=== PATIENT | female | born 1955 | race Native Hawaiian/Other Pacific Islander ===

== ENCOUNTER 2017-11-07 22:09 | Inpatient (IN) | payer OTHER ==
[2017-11-07 22:12] VITALS: BMI 30.2
[2017-11-07] MEDS ORDERED: Sodium Chloride 0.9% 1,000 ML IV STA (22:21)
--- NOTE | 2017-11-07 22:27 | ED PDOC ---
Arrival/HPI - General Chief Complaint: Flu-like Symptoms Time Seen by Provider: 11/07/17 22:16 Historian: Patient - History of Present Illness Narrative History of Present Illness (Text): 11/07/17 22:24 A 62 year old female, whose past medical history includes hypertension and diabetes, presents to the emergency department with a complaint of epigastric abdominal pain, nausea, vomiting, fever and chills. The patient denies headache , dizziness, chest pain, shortness of breath, dyspnea on exertion, cough, diarrhea, back pain, neck pain, urinary/bowel changes, or any other complaint. PMD: Dr. Fisher Time/Duration: Other (Today) Symptom Onset: Sudden Symptom Course: Unchanged Activities at Onset: Rest Context: Home Past Medical History - Provider Review Nursing Documentation Reviewed: Yes - Infectious Disease Hx of Infectious Diseases: None - Cardiac Hx Hypertension: Yes - Endocrine/Metabolic Hx Diabetes Mellitus Type 2: Yes - Psychiatric Hx Substance Use: No - Surgical History Hx Section: Yes Hx Hysterectomy: Yes Other/Comment: Laminectomy - Anesthesia Hx Anesthesia: No Family/Social History - Physician Review Nursing Documentation Reviewed: Yes Family/Social History: No Known Family HX Smoking Status: Never Smoked Hx Alcohol Use: No Hx Substance Use: No Allergies/Home Meds Allergies/Adverse Reactions: Allergies No Known Allergies Allergy (Verified 11/07/17 22:12) Home Medications: Home Meds Medication Instructions Recorded Confirmed Aspirin [Ecotrin] 1 tab PO DAILY 11/07/17 11/07/17 Fenofibrate [Tricor] 1 tab PO DAILY 11/07/17 11/07/17 Losartan [Cozaar] 1 tab PO DAILY 11/07/17 11/07/17 Metformin ER [Glucophage XR] 1 tab PO BID 11/07/17 11/07/17 Metoprolol Succinate [Toprol XL] 1 tab PO DAILY 11/07/17 11/07/17 Simvastatin [Simvastatin] 1 tab PO DAILY 11/07/17 11/07/17 hydroCHLOROthiazide [Hydrodiuril] 1 tab PO DAILY 11/07/17 11/07/17 Review of Systems - Physician Review All systems were reviewed & negative as marked: Yes - Review of Systems Constitutional: Fevers Respiratory: absent: SOB, Cough Cardiovascular: absent: Chest Pain, GRIFFITHS Gastrointestinal: Abdominal Pain (Epigastric), Nausea, Vomiting. absent: Stool Changes, Diarrhea Genitourinary Female: absent: Urine Output Changes Musculoskeletal: absent: Back Pain, Neck Pain Neurological: absent: Headache, Dizziness Physical Exam Vital Signs Reviewed: Yes Vital Signs Temp Pulse Resp BP Pulse Ox 11/08/17 03:27 18 114/59 L 98 11/08/17 02:14 96 H 18 112/70 98 11/08/17 02:11 108/67 11/08/17 00:27 80 18 137/66 98 11/07/17 22:21 98.1 F 95 H 18 124/56 L 93 L Temperature: Afebrile Blood Pressure: Hypertensive Pulse: Tachycardic Respiratory Rate: Normal Appearance: Positive for: Well-Appearing, Non-Toxic, Comfortable Pain Distress: None Mental Status: Positive for: Alert and Oriented X 3 - Systems Exam Head: Present: Atraumatic, Normocephalic Pupils: Present: PERRL Extroacular Muscles: Present: EOMI Conjunctiva: Present: Normal Mouth: Present: Moist Mucous Membranes Neck: Present: Normal Range of Motion Respiratory/Chest: Present: Clear to Auscultation, Good Air Exchange. No: Respiratory Distress, Accessory Muscle Use Cardiovascular: Present: Regular Rate and Rhythm, Normal S1, S2. No: Murmurs Abdomen: Present: Tenderness (Epigastric tenderness) Back: Present: Normal Inspection Upper Extremity: Present: Normal Inspection. No: Cyanosis, Edema Lower Extremity: Present: Normal Inspection. No: Edema Neurological: Present: GCS=15, CN II-XII Intact, Speech Normal Skin: Present: Warm, Dry, Normal Color. No: Rashes Psychiatric: Present: Alert, Oriented x 3, Normal Insight, Normal Concentration Medical Decision Making ED Course and Treatment: 11/07/17 22:28 Impression: A 62 year old female presents to the emergency department with a complaint of nausea, vomiting, fevers, chills, and epigastric abdominal pain. Plan: -- EKG -- Chest X-ray -- Labs -- Zofran, Protonix, and IV Fluids -- Urinalysis -- Reassess and disposition Progress Notes: EKG: Ordered, reviewed, and independently interpreted the EKG. Rate : 97 BPM Rhythm : NSR Interpretation : Incomplete RBBB. Non specific ST-T wave changes. Comparison : No previous EKG for comparison. XR Chest, 1 View Dictated and Authenticated by: Gustavo Ames MD 11/07/2017 10:52 PM Eastern Time ([place] & [place]) IMPRESSION: Minimal bilateral basilar atelectasis versus small infiltrates. 11/07/17 23:19: Discussed case with Dr. Fisher. Will admit patient to his service. US Abdomen Complete Dictated and Authenticated by: Gustavo Ames MD 11/07/2017 11:50 PM Eastern Time ([place] & [place]) IMPRESSION: Gallbladder wall thickening and trace pericholecystic fluid. This is a nonspecific finding. Correlate clinically. There are no stones, and there is no sonographic Valero's sign. A nuclear medicine hepatobiliary study can be performed as followup. 11/08/17 02:06: Discussed case with Dr. Fisher. Requests Dr. Townsend on surgical consult. vice president business & corporate development paged. CT Abdomen and Pelvis Without Intravenous Contrast Dictated and Authenticated by: Gustavo Ames MD 11/08/2017 2:00 AM Eastern Time ([place] & [place] IMPRESSION: 1. No acute abnormality in the abdomen, or pelvis. 2. No bowel obstruction. 3. Remainder of findings as above. 11/08/17 02:13: Dr. Townsend was paged. vice president business & corporate development was made aware as well. - Lab Interpretations Lab Results: 11/07/17 22:40 11/07/17 22:40 Lab Results 11/07/17 22:45: Urine Color Yellow, Urine Appearance Sl cloudy, Urine pH 6.0, Ur Specific [place] 1.020, Urine Protein 100 H, Urine Glucose (UA) Negative, Urine Ketones Negative, Urine Blood Large H, Urine Nitrate Positive H, Urine Bilirubin Negative, Urine Urobilinogen 1.0 H, Ur Leukocyte Esterase Moderate H, Urine RBC 25 - 30, Urine WBC 20 - 25, Ur Epithelial Cells 1 - 3, Urine Bacteria Mod 11/07/17 22:40: pO2 68 H, VBG pH 7.50 H, VBG pCO2 32.0 L, VBG HCO3 25.0, VBG Total CO2 26.0, VBG O2 Sat (Calc) 96.9 H, VBG Base Excess 2.4 H, VBG Potassium 4.4, Sodium 135.0, Chloride 103.0, Glucose 159 H, Lactate 1.0, FiO2 21.0, Venous Blood Potassium 4.4 11/07/17 22:40: Influenza Typ A,B (EIA) Negative for flu a/b 11/07/17 22:40: Sodium 136, Chloride 102, Potassium 3.6, Carbon Dioxide 21, Anion Gap 16, BUN 46 H, Creatinine 2.4 H, Est GFR ( Amer) 25, Est GFR ( Non-Af Amer) 21, Random Glucose 154 H, Calcium 9.0, Total Bilirubin 0.8, AST 47 H, ALT 43, Alkaline Phosphatase 88, Lactate Dehydrogenase 584, Total Creatine Kinase 135, Troponin I < 0.01, NT-Pro-B Natriuret Pep 1040 H, Total Protein 7.4 , Albumin 3.5, Globulin 3.8, Albumin/Globulin Ratio 0.9 L, Lipase 59 11/07/17 22:40: PT 13.1 H, INR 1.20 H, APTT 27.6 11/07/17 22:40: WBC 13.2 H, RBC 3.90, Hgb 11.7 L, Hct 34.0 L, MCV 87.2, MCH 30.0 , MCHC 34.4, RDW 13.3, Plt Count 213, MPV 10.9, Gran % 88.1 H, Lymph % (Auto) 3.6 L, [place] % (Auto) 8.1 H, Eos % (Auto) 0.1 L, Baso % (Auto) 0.1, Gran # 11.59 H, Lymph # 0.5 L, [place] # 1.1 H, Eos # 0.0, Baso # 0.01, Neutrophils % (Manual) 21 L, Band Neutrophils % 35 H*, Lymphocytes % (Manual) 14 L, Monocytes % (Manual ) 8 H, Eosinophils % (Manual) 18 H, Basophils % (Manual) 2 H, Metamyelocytes % 2 , Platelet Evaluation Normal I have reviewed the lab results: Yes - RAD Interpretation Radiology Orders: 11/07/17 22:22 CXR [CHEST PORTABLE] [RAD] Stat 11/07/17 23:21 ABD & PELVIS PO CONTRAST ONLY [CT] Stat 11/07/17 23:25 ABDOMEN COMPLETE [US] Stat - EKG Interpretation Interpreted by ED Physician: Yes Type: 12 lead EKG - Medication Orders Current Medication Orders: Acetaminophen (Tylenol 325mg Tab) 650 mg PO Q6H PRN PRN Reason: Fever >100.4 F Last Admin: 11/08/17 16:12 Dose: 650 mg Re-Assess: MAR Pain/Vitals Document 11/08/17 17:12 CD (Rec: 11/08/17 17:29 CD [id number]) Sleep Is patient sleeping during reassessment? Yes Hydromorphone HCl (Dilaudid) 0.5 mg IVP Q4H PRN PRN Reason: Pain, severe (8-10) Metronidazole (Flagyl) 500 mg in 100 mls @ 100 mls/hr IVPB Q8 ANASTACIO PRN Reason: Protocol Last Admin: 11/08/17 14:28 Dose: 100 mls/hr eMAR Start Stop Document 11/08/17 14:28 CD (Rec: 11/08/17 14:28 CD [id number]) Intravenous Solution Start Date 11/08/17 Start Time 14:28 Ceftriaxone Sodium 1,000 mg/ (Sodium Chloride) 50 mls @ 100 mls/hr IVPB Q12H ANASTACIO PRN Reason: Protocol Last Admin: 11/08/17 16:53 Dose: 100 mls/hr eMAR Start Stop Document 11/08/17 16:53 CD (Rec: 11/08/17 16:53 CD [id number]) Intravenous Solution Start Date 11/08/17 Start Time 16:53 Sodium Chloride (Sodium Chloride 0.9%) 100 mls @ 100 mls/hr IV .Q1H ANASTACIO Last Admin: 11/08/17 18:15 Dose: Insulin Human Regular (Humulin R Low) 0 units SC ACHS ANASTACIO PRN Reason: Protocol Last Admin: 11/08/17 16:35 Dose: 1 units MAR Blood Glucose Document 11/08/17 16:35 CD (Rec: 11/08/17 16:36 [email or web address]) Blood Glucose Finger Stick Blood Glucose (70-120) 159 Subcutaneous Administrations Document 11/08/17 16:35 CD (Rec: 11/08/17 16:36 [email or web address]) Injection Site MAR Injection Site Umbilicus Charges for Administration # of Subcutaneous Administrations 1 Metoprolol Succinate (Toprol Xl) 50 mg PO BRK ANASTACIO Ondansetron HCl (Zofran Inj) 4 mg IVP Q6H PRN PRN Reason: Nausea/Vomiting Last Admin: 11/08/17 16:35 Dose: 4 mg IVP Administration Document 11/08/17 16:35 CD (Rec: 11/08/17 16:35 CD [id number]) Charges for Administration # of IVP Administrations 1 Pantoprazole Sodium (Protonix Inj) 40 mg IVP DAILY ANASTACIO Last Admin: 11/08/17 09:41 Dose: 40 mg IVP Administration Document 11/08/17 09:41 CD (Rec: 11/08/17 09:41 CD [id number]) Charges for Administration # of IVP Administrations 1 Discontinued Medications Acetaminophen (Tylenol 325mg Tab) 975 mg PO STAT STA Stop: 11/08/17 00:18 Last Admin: 11/08/17 00:26 Dose: 975 mg MAR Pain/Vitals Document 11/08/17 00:26 SS (Rec: 11/08/17 00:26 SS [id number]) Pain Reassessment Is This A Pain ReAssessment? No Sleep Is patient sleeping during reassessment? No Presence of Pain Presence of Pain Yes Location Pain Location Body Hub Cutter Diphenhydramine HCl (Benadryl) 25 mg IVP STAT STA Stop: 11/08/17 02:07 Last Admin: 11/08/17 02:20 Dose: 25 mg IVP Administration Document 11/08/17 02:20 LAC (Rec: 11/08/17 02:20 LAC [id number]) Charges for Administration # of IVP Administrations 1 Furosemide (Lasix) 40 mg IVP ONCE ONE Stop: 11/08/17 02:06 Last Admin: 11/08/17 02:11 Dose: 40 mg MAR Blood Pressure Document 11/08/17 02:11 LAC (Rec: 11/08/17 02:19 LAC [id number]) Blood Pressure Blood Pressure (100/60-150/90) 108/67 IVP Administration Document 11/08/17 02:11 LAC (Rec: 11/08/17 02:19 LAC [id number]) Charges for Administration # of IVP Administrations 1 Sodium Chloride (Sodium Chloride 0.9%) 1,000 mls @ 1,000 mls/hr IV .Q1H STA Stop: 11/07/17 23:20 Last Admin: 11/07/17 22:41 Dose: 1,000 mls/hr eMAR Start Stop Document 11/07/17 22:41 SS (Rec: 11/07/17 22:41 SS [id number]) Intravenous Solution Start Date 11/07/17 Start Time 22:41 End Date 11/07/17 End time 23:41 Total Infusion Time 60 Piperacillin Sod/Tazobactam Sod (Zosyn 3.375 In Ns 100ml) 100 mls @ 200 mls/hr IVPB STAT STA PRN Reason: Protocol Stop: 11/08/17 00:21 Last Admin: 11/08/17 00:18 Dose: 200 mls/hr eMAR Start Stop Document 11/08/17 00:18 SS (Rec: 11/08/17 00:18 SS [id number]) Intravenous Solution Start Date 11/08/17 Start Time 00:18 End Date 11/08/17 End time 00:48 Total Infusion Time 30 Ceftriaxone Sodium 1,000 mg/ (Sodium Chloride) 50 mls @ 100 mls/hr IVPB Q24H ANASTACIO PRN Reason: Protocol Sodium Chloride (Sodium Chloride 0.9%) 1,000 mls @ 150 mls/hr IV .Q6H40M ANASTACIO Last Admin: 11/08/17 06:34 Dose: 150 mls/hr eMAR Start Stop Document 11/08/17 06:34 PCU (Rec: 11/08/17 06:35 PCU [id number]) Intravenous Solution Start Date 11/08/17 Start Time 05:45 End Date 11/08/17 End time 11:45 Total Infusion Time 360 Metoclopramide HCl (Reglan) 10 mg IVP STAT STA Stop: 11/08/17 02:07 Last Admin: 11/08/17 02:20 Dose: 10 mg IVP Administration Document 11/08/17 02:20 LAC (Rec: 11/08/17 02:21 LAC [id number]) Charges for Administration # of IVP Administrations 1 Ondansetron HCl (Zofran Inj) 4 mg IVP STAT STA Stop: 11/07/17 22:22 Last Admin: 11/07/17 22:41 Dose: 4 mg IVP Administration Document 11/07/17 22:41 SS (Rec: 11/07/17 22:41 SS [id number]) Charges for Administration # of IVP Administrations 1 Ondansetron HCl (Zofran Inj) 4 mg IVP STAT STA Stop: 11/07/17 23:23 Last Admin: 11/07/17 23:28 Dose: 4 mg IVP Administration Document 11/07/17 23:28 SS (Rec: 11/07/17 23:28 SS [id number]) Charges for Administration # of IVP Administrations 1 Pantoprazole Sodium (Protonix Inj) 40 mg IVP STAT STA Stop: 11/07/17 22:22 Last Admin: 11/07/17 22:41 Dose: 40 mg IVP Administration Document 11/07/17 22:41 SS (Rec: 11/07/17 22:41 SS [id number]) Charges for Administration # of IVP Administrations 1 - Scribe Statement The provider has reviewed the documentation as recorded by the Jarredibe Jovana Casillas Provider Scribe Attestation: All medical record entries made by the Scribe were at my direction and personally dictated by me. I have reviewed the chart and agree that the record accurately reflects my personal performance of the history, physical exam, medical decision making, and the department course for this patient. I have also personally directed, reviewed, and agree with the discharge instructions and disposition. Disposition/Present on Arrival - Present on Arrival Any Indicators Present on Arrival: No History of DVT/PE: No History of Uncontrolled Diabetes: No Urinary Catheter: No History of Decub. Ulcer: No History Surgical Site Infection Following: None - Disposition Have Diagnosis and Disposition been Completed?: Yes Diagnosis: UTI (urinary tract infection), Bandemia, Cholecystitis, Renal failure Disposition: HOSPITALIZED Disposition Time: 03:00 Condition: FAIR
[2017-11-07 22:51] LABS: VENOUS BLOOD GAS BASE EXCESS 2.4 mmol/L (0.0-2.0); VENOUS BLOOD GAS PO2 68 mm/Hg (30-55)
--- NOTE | 2017-11-07 22:53 | RAD ---
EXAM: XR Chest, 1 View CLINICAL HISTORY: 62 years old, female; Signs and symptoms; Shortness of breath; Patient HX: Flu, abd pain TECHNIQUE: Frontal view of the chest. COMPARISON: No relevant prior studies available. FINDINGS: Lungs: Minimal hazy opacity right lung base, atelectasis versus small infiltrate. Atelectasis versus small infiltrate left base. Pleural space: Unremarkable. No pneumothorax. Heart: Heart size is normal. Degenerative changes thoracic spine. Mediastinum: Unremarkable. Bones/joints: See above. IMPRESSION: Minimal bilateral basilar atelectasis versus small infiltrates.
[2017-11-07 22:59] LABS: ALB/GLOB RATIO 0.9 (1.1-1.8); ALBUMIN 3.5 g/dL (3.0-4.8); GFR AFRICAN-AMERICAN 25; GFR NON-AFRICAN AMERICAN 21; LIPASE 59 U/L (23-300)
[2017-11-07 23:03] LABS: INR 1.2 (0.93-1.08); PARTIAL THROMBOPLASTIN TIME 27.6 Seconds (25.1-36.5); PROTHROMBIN TIME 13.1 SECONDS (9.4-12.5)
[2017-11-07 23:05] LABS: ALT/SGPT 43 U/L (7-56); AST/SGOT 47 U/L (14-36); BASO # 0.01 K/mm3 (0.0-2.0); BASO % 0.1 % (0.0-3.0); BLOOD UREA NITROGEN 46 mg/dL (7-21); EOS % 0.1 % (1.5-5.0); GRAN # 11.59 (1.4-6.5); GRAN % 88.1 % (50.0-68.0); HEMOGLOBIN 11.7 g/dL (12.0-16.0); LYMPH # 0.5 (1.2-3.4); LYMPH % 3.6 % (22.0-35.0); MEAN CELL VOLUME 87.2 fl (80.0-105.0); MEAN CORPUSCULAR HGB CONC 34.4 g/dl (31.0-37.0); MEAN PLATELET VOLUME 10.9 fl (7.0-11.0); MONO # 1.1 (0.1-0.6); MONO % 8.1 % (1.0-6.0); PLATELET COUNT 213 10^3/uL (120.0-450.0); RED CELL DISTRIBUTION WIDTH 13.3 % (11.5-14.5); WHITE BLOOD COUNT 13.2 10^3/ul (4.5-11.0)
[2017-11-07 23:11] LABS: B-TYPE NATRIURETIC PEPTIDE 1040 pg/mL (0-450); TROPONIN I < 0.01 ng/mL
[2017-11-07] MEDS ORDERED: Iohexol 240 (50 ml) ONE (23:29)
--- NOTE | 2017-11-07 23:51 | US ---
EXAM: US Abdomen Complete CLINICAL HISTORY: 62 years old, female; Pain; Abdominal pain; Generalized; Additional info: Upper abd pain TECHNIQUE: Real-time ultrasound of the abdomen (complete) with image documentation. COMPARISON: No relevant prior studies available. FINDINGS: Liver: Hepatomegaly. Diffusely increased echogenicity throughout the liver consistent with hepatic steatosis. Portal vein is patent with normal direction of flow. No intrahepatic bile duct dilation. Gallbladder: No gallstones. Diffuse nonspecific gallbladder wall thickening at 3.6 mm. No sonographic Valero's sign. Questionable minimal pericholecystic fluid. Common bile duct: Common bile duct measures 5.6 mm. No stones. No dilation. Pancreas: Unremarkable as visualized. Kidneys: Right kidney measures 12.9 CM longitudinally. 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 This measures 1.6 CM. Left kidney measures 11.3 CM longitudinally. No stones. No hydronephrosis. Spleen: Spleen measures 10.4 CM longitudinally. Aorta: IVC and aorta are unremarkable. No aneurysm. Inferior vena cava: See above. IMPRESSION: Gallbladder wall thickening and trace pericholecystic fluid. This is a nonspecific finding. Correlate clinically. There are no stones, and there is no sonographic Valero's sign. A nuclear medicine hepatobiliary study can be performed as followup.
[2017-11-07] MEDS ORDERED: Piperacillin/Tazobact 3.375 gm 100 ML IVPB STA (23:52)
[2017-11-08 00:53] LABS: URINE BILIRUBIN NEGATIVE (NEGATIVE); URINE BLOOD LARGE (NEGATIVE); URINE GLUCOSE (UA) NEGATIVE (NEGATIVE); URINE LEUKOCYTE ESTERASE MODERATE Leu/uL (NEGATIVE); URINE NITRATE POSITIVE (NEGATIVE); URINE PROTEIN 100 mg/dL (<30 mg/dL)
[2017-11-08 00:54] LABS: URINE APPEARANCE SL CLOUDY (CLEAR); URINE COLOR YELLOW (YELLOW)
[2017-11-08 01:27] LABS: URINE BACTERIA MOD (NEG); URINE RBC 25 - 30 /hpf (0-2); URINE WBC 20 - 25 /hpf (0-6)
--- NOTE | 2017-11-08 02:00 | CT ---
EXAM: CT Abdomen and Pelvis Without Intravenous Contrast CLINICAL HISTORY: 62 years old, female; Pain; Abdominal pain; Generalized; Prior surgery; Surgery type: C section; Additional info: Upper abd pain, vomiting TECHNIQUE: Axial computed tomography images of the abdomen and pelvis without intravenous contrast. All CT scans at this facility use one or more dose reduction techniques, viz.: automated exposure control; ma/kV adjustment per patient size (including targeted exams where dose is matched to indication; i.e. head); or iterative reconstruction technique. Coronal and sagittal reformatted images were created and reviewed. COMPARISON: US - ABDOMEN COMPLETE 2017-11-07 23:28 FINDINGS: Lower thorax: No acute findings. ABDOMEN: Liver: Hepatomegaly and hepatic steatosis. Gallbladder and bile ducts: No calcified gallstones. No significant pericholecystic inflammation. No ductal dilation. Pancreas: Unremarkable. No ductal dilation. Spleen: Spleen is unremarkable. Adrenals: Unremarkable. No mass. Kidneys and ureters: Kidneys are unremarkable. No renal calculi. No hydronephrosis. Stomach and bowel: Stomach is unremarkable. No small bowel obstruction. Appendix is unremarkable. Colon is unremarkable. Appendix: See above. PELVIS: Bladder: Urinary bladder is unremarkable. No stones. Reproductive: Hysterectomy. ABDOMEN and PELVIS: Intraperitoneal space: No free fluid in the pelvis. No free air. Bones/joints: Diffuse spinal degenerative changes. No acute fracture. No dislocation. Soft tissues: Unremarkable. Vasculature: Aorta is atherosclerotic. No abdominal aortic aneurysm. Lymph nodes: Unremarkable. No enlarged lymph nodes. IMPRESSION: 1. No acute abnormality in the abdomen, or pelvis. 2. No bowel obstruction. 3. Remainder of findings as above.
[2017-11-08] MEDS ORDERED: DiphenhydrAMINE 50 mg/ml Inj IVP STA (02:06)
[2017-11-08 03:14] LABS: NEUTROPHIL 21 % (50.0-70.0)
[2017-11-08 03:16] LABS: BAND 35 % (0-2); LYMPHOCYTE 14 % (22.0-35.0)
[2017-11-08 03:17] LABS: BASOPHIL 2 % (0.0-1.0); EOSINOPHIL 18 % (0.0-3.0); METAMYELOCYTE 2 %; MONOCYTE 8 % (1.0-6.0); PLATELET ESTIMATE NORMAL (NORMAL)
--- NOTE | 2017-11-08 04:09 | CP.PCM.CON ---
History of Present Illness - History of Present Illness History of Present Illness: General Surgery Consult Note for Dr. Townsend Reason for consult: Abdominal pain, nausea/vomiting 62 F with PMH that includes HTN, DM, HLD presents to [facility] with complaint of abdominal pain and nausea/vomiting. Patient states that her symptoms began on Thursday while she was at home. She reports a sudden onset and states that it has gotten progressively worse. Patient states that last night pain became most severe and decided to come to hospital. She reports 1-2 episodes of non-bloody, non-bilious vomiting per day. She reports associated fever/chills and anorexia. Patient has poor oral intake since onset of symptoms. She rates pain as severe. She describes pain and constant and sharp located in RUQ and epigastric region without radiation elsewhere. Eating/drinking exacerbates her symptoms while only the morphine in the ED was able to alleviate her symptoms. Patient denies chest pain, sob, palpitations, diarrhea, consitpation, incontinence, hematemesis , hematochezia, and urinary symptoms. PMD: Dr. Arizmendi PMH: HTN, DM, HLD Meds: As per EMR Allergy: NKDA PSH: Laminectomy, FH: non-contributory Social: Denies tobacco/EtOH/illicit drug use, lives with , works as teacher's aid Review of Systems - Review of Systems All systems: reviewed and no additional remarkable complaints except (12 point ROS negative unless otherwise stated as per HPI) Past Patient History - Infectious Disease Hx of Infectious Diseases: None - Past Social History Smoking Status: Never Smoked - CARDIAC Hx Hypertension: Yes - ENDOCRINE/METABOLIC Hx Diabetes Mellitus Type 2: Yes - PSYCHIATRIC Hx Substance Use: No - SURGICAL HISTORY Hx Section: Yes Hx Hysterectomy: Yes Other/Comment: Laminectomy - ANESTHESIA Hx Anesthesia: No Meds Allergies/Adverse Reactions: Allergies Allergy/AdvReac Type Severity Reaction Status Date / Time No Known Allergies Allergy Verified 11/07/17 22:12 Physical Exam - Constitutional Appears: Non-toxic, No Acute Distress - Head Exam Head Exam: ATRAUMATIC, NORMOCEPHALIC - Eye Exam Eye Exam: EOMI, Normal appearance. absent: Scleral icterus Pupil Exam: PERRL - ENT Exam ENT Exam: Mucous Membranes Moist - Respiratory Exam Respiratory Exam: NORMAL BREATHING PATTERN - Cardiovascular Exam Cardiovascular Exam: REGULAR RHYTHM - GI/Abdominal Exam GI & Abdominal Exam: Distended (mild), Normal Bowel Sounds, Soft, Tenderness ( epigastric/RUQ). absent: Firm, Guarding, Hernia, Rebound, Rigid Additional comments: (+) guzman's sign - Extremities Exam Extremities exam: Positive for: normal capillary refill, pedal pulses present. Negative for: calf tenderness - Back Exam Back exam: absent: CVA tenderness (L), CVA tenderness (R) - Neurological Exam Neurological exam: Alert, CN II-XII Intact, Oriented x3 - Psychiatric Exam Psychiatric exam: Normal Affect, Normal Mood - Skin Skin Exam: Dry, Intact, Normal Color, Warm Results - Vital Signs Recent Vital Signs: Last Vital Signs Temp 98.1 F 11/07/17 22:21 Pulse 96 H 11/08/17 02:14 Resp 18 11/08/17 03:27 BP 114/59 L 11/08/17 03:27 Pulse Ox 98 11/08/17 03:27 - Labs Result Diagrams: 11/08/17 08:30 11/08/17 08:30 Assessment & Plan - Assessment and Plan (Free Text) Plan: 62 F with abdominal pain and nausea/vomiting. ABUS findings suggestive of acute acalculous cholecystitis which differs from CT abd/pelvis -NPO -IV fluids -IV Antibiotics -Analgesics/Anti-emetics PRN -Anti-pyretics PRN -GI/DVT ppx -WIll discuss with Dr. Kristian Yen PGY1
[2017-11-08] MEDS ORDERED: HYDROmorphone 0.5 mg/0.5 ml ISec IVP PRN (05:29)
[2017-11-08] MEDS ORDERED: Sodium Chloride 0.9% 1,000 ML IV SCH (05:45)
[2017-11-08] MEDS ORDERED: cefTRIAXone 1,000 MG in Sodium Chloride 0.9% 50 ML IVPB SCH (05:45)
[2017-11-08] MEDS: metroNIDAZOLE IV 500 mg/100 ml 500 MG/100 ML BAG IVPB SCH ×3 (06:21→21:10)
[2017-11-08] MEDS: cefTRIAXone 1,000 MG in Sodium Chloride 0.9% 50 ML IVPB SCH ×2 (06:30→16:53)
--- NOTE | 2017-11-08 08:23 | CP.PCM.HP ---
History of Present Illness - History of Present Illness History of Present Illness: 62 year old female with history of diabetes, hyperlipidemia and hypertension presented to the Emergency Room last night with nausea, and abdominal pain. Patient says she started having chills and nausea about 5-6 days ago. The nausea was getting worse and she felt pain and pressure in the lower part of her abdomen so she came to the ER. She denies chest pain, shortness of breath, dysuria, diarrhea or swelling of lower extremities. Present on Admission - Present on Admission Any Indicators Present on Admission: No History of DVT/PE: No History of Uncontrolled Diabetes: No Urinary Catheter: No Decubitus Ulcer Present: No Review of Systems - Constitutional Constitutional: Chills - Cardiovascular Cardiovascular: absent: Chest Pain, Diaphoresis, Dyspnea - Gastrointestinal Gastrointestinal: As Per HPI - Genitourinary Genitourinary: As Per HPI - Musculoskeletal Musculoskeletal: absent: Abnormal Gait, Arthralgias, Back Pain Past Patient History - Infectious Disease Hx of Infectious Diseases: None - Past Social History Smoking Status: Never Smoked - CARDIAC Hx Hypertension: Yes - ENDOCRINE/METABOLIC Hx Diabetes Mellitus Type 2: Yes - MUSCULOSKELETAL/RHEUMATOLOGICAL Hx Falls: No - PSYCHIATRIC Hx Substance Use: No - SURGICAL HISTORY Hx Section: Yes Hx Hysterectomy: Yes Other/Comment: Laminectomy - ANESTHESIA Hx Anesthesia: No Meds Allergies/Adverse Reactions: Allergies Allergy/AdvReac Type Severity Reaction Status Date / Time No Known Allergies Allergy Verified 11/07/17 22:12 Physical Exam - Constitutional Appears: No Acute Distress - Head Exam Head Exam: ATRAUMATIC, NORMOCEPHALIC - Respiratory Exam Respiratory Exam: Clear to Auscultation Bilateral, NORMAL BREATHING PATTERN - Cardiovascular Exam Cardiovascular Exam: REGULAR RHYTHM, +S1, +S2 - GI/Abdominal Exam GI & Abdominal Exam: Soft, Tenderness. absent: Guarding Additional comments: diffuse abdominal tenderness, negative Valero's sign - Extremities Exam Extremities exam: Positive for: normal inspection - Neurological Exam Neurological exam: Alert, CN II-XII Intact, Oriented x3 Results - Vital Signs Recent Vital Signs: Last Vital Signs Temp 98.6 F 11/08/17 05:01 Pulse 87 11/08/17 05:01 Resp 20 11/08/17 05:01 BP 102/55 L 11/08/17 05:01 Pulse Ox 98 11/08/17 03:27 - Labs Result Diagrams: 11/08/17 08:30 11/08/17 08:30 Assessment & Plan - Assessment and Plan (Free Text) Assessment: Sepsis Urinary tract infection r/o cholecystitis GUANACO Anemia HTN DMII HLP arthritis Plan: Patient with diffuse tenderness and feeling of pressure in the lower quadrants. U/S abdomen shows gallbladder thickening and minimal pericholecystic fluid White count elevated with bands of 35. Consult Dr. Paul for infectious disease continue Zofran as needed for nausea. continue Protonix. Patient with new renal insufficiency. IV NS at 100ml/hour. awaiting today's labs. Accuchecks with sliding scale coverage for diabetes hold metformin secondary to acute kidney injury will start Metoprolol with holding parameters for hypertension
[2017-11-08 08:57] LABS: BASO # 0.01 K/mm3 (0.0-2.0); BASO % 0.1 % (0.0-3.0); EOS % 0.2 % (1.5-5.0); GRAN # 10.53 (1.4-6.5); GRAN % 86.6 % (50.0-68.0); HEMOGLOBIN 11.6 g/dL (12.0-16.0); LYMPH # 0.7 (1.2-3.4); LYMPH % 5.9 % (22.0-35.0); MEAN CORPUSCULAR HEMOGLOBIN 30.1 pg (25.0-35.0); MEAN CORPUSCULAR HGB CONC 34.6 g/dl (31.0-37.0); MEAN PLATELET VOLUME 10.6 fl (7.0-11.0); MONO # 0.9 (0.1-0.6); MONO % 7.2 % (1.0-6.0); RBC 3.85 10^6/uL (3.5-6.1); RED CELL DISTRIBUTION WIDTH 13.3 % (11.5-14.5); WHITE BLOOD COUNT 12.2 10^3/ul (4.5-11.0)
[2017-11-08] MEDS: Sodium Chloride 0.9% 100 ML IV SCH ×12 (09:04→20:34)
[2017-11-08 09:08] LABS: ALBUMIN 3.6 g/dL (3.0-4.8); CALCIUM 9.1 mg/dL (8.4-10.5)
--- NOTE | 2017-11-08 10:04 | CARD ---
APPROVED REPORT EKG Measurement Heart [id number] ID [id number] <Conclusion> Normal sinus rhythm Incomplete right bundle branch block NSSTW changes
[2017-11-08] MEDS: Insulin Reg-LOW-Coverage SC SCH ×3 (11:45→21:24)
--- NOTE | 2017-11-08 13:50 | NM ---
PROCEDURE: Nuclear Medicine Hepatobiliary Scan HISTORY: suspected cholecystitis COMPARISON: November 07, 2017. Abdominal ultrasound November 08, 2017. CT abdomen and pelvis TECHNIQUE: 5.2 mCi of technetium 99m Mebrofenin was administered intravenously. Planar images of the abdomen were obtained at 5 min intervals to 60 mins. Delayed images were also obtained. FINDINGS: LIVER: Timely and homogenous uptake. COMMON BILE DUCT: identified at 15 mins. GALLBLADDER: identified at 15 mins. SMALL BOWEL: Identified at 45 mins. IMPRESSION: Normal Hepatobiliary Scan. The cystic duct is patent.
--- NOTE | 2017-11-09 03:16 | CON ---
DATE: 11/08/2017 LOCATION : The patient is seen earlier in room number 372 bed 2. CHIEF COMPLAINT: Fevers and body aches times several days. HISTORY OF PRESENT ILLNESS: This is a 62-year-old female with past medical history of hypertension and diabetes who presented to the Emergency Room complaining of epigastric pain with fevers, chills and aches, associated with nausea.. No vomiting and there has been no diarrhea or constipation reported. There is minimal cough, but no shortness of breath and no chest pain. No dysuria or frequency. No rash. No new joint pain. PAST MEDICAL HISTORY: Significant for hypertension, high cholesterol, and diabetes mellitus. PAST SURGICAL HISTORY: Significant for and hysterectomy. ALLERGIES: THE PATIENT HAS NO KNOWN ALLERGIES. MEDICATIONS: At home include Ecotrin, valsartan, TriCor, , statin, metoprolol and metformin. PHYSICAL EXAMINATION: VITAL SIGNS: On exam, the patient is in bed with a temperature of 98, heart rate of 96, respiratory rate of 20, and blood pressure is 112/70. HEENT: Examination of HEENT is unremarkable. NECK: Supple. LUNGS: Have decreased breath sounds. HEART: Normal S1 and S2. ABDOMEN: Mild tenderness. No rebound, guarding or masses. LABORATORY DATA: Laboratory examination reveals a white count of 13,200, hemoglobin of 11, and platelets of 213. The patient does have 35% bandemia with 14% lymphocytosis 21% neutrophils and a coagulation is noted. The INR of 1.2. Blood gases are reviewed. Chemistries reveals a BUN of 46, creatinine of 2.3 and glucose of 154. AST is 47, and alkaline phosphatase is normal. BMP is 1040. The patient's lipase is 59. Urinalysis is noted with 20 to 25 wbc's and moderate bacteria. Influenza is negative. Microbiology is pending. DIAGNOSTIC DATA: The patient had a chest x-ray. Minimal hazy opacity of the right lung base. The patient has no known allergies. The patient also had a CT scan of the abdomen and pelvis with no acute findings. No findings in the lower thorax, no calcified gallstone, no pericholecystic inflammation and no ductal dilatation. consultation is reviewed, which states the patient suggestive of having acute acalculous cholecystitis and she will discuss here with Dr. Townsend. The patient also had an ultrasound of the abdomen, gallbladder thickening and has pericholecystic fluid. The patient also had a HIDA scan, with a normal HIDA scan and cystic duct is patent. Dr. Scales's note is reviewed. ASSESSMENT AND PLAN: This is a 62-year-old female with history of hypertension, diabetes and high cholesterol admitted now with history of fevers, tachycardia and leukocytosis and bandemia and positive urinalysis and abdominal pain and leukocytosis. Severe sepsis, with must rule out is acalculous cholecystitis versus urine as the source with 35% bandemia and acute kidney injury. We will treat the patient with ceftriaxone and Flagyl. Check on the blood cultures, urine cultures. Gastroenterology on consultation and Surgery on consultation. We will do an human immunodeficiency virus test because of the patient's age of 62. We will make further recommendations depending on blood cultures, urine cultures and the patient's response. Michelet Paul MD
[2017-11-09] MEDS: metroNIDAZOLE IV 500 mg/100 ml 500 MG/100 ML BAG IVPB SCH ×3 (05:37→21:27)
[2017-11-09] MEDS ORDERED: cefTRIAXone 1,000 MG in Sodium Chloride 0.9% 50 ML IVPB SCH (05:45)
[2017-11-09 06:55] LABS: BASO # 0.01 K/mm3 (0.0-2.0); BASO % 0.1 % (0.0-3.0); GRAN # 9.84 (1.4-6.5); GRAN % 82.8 % (50.0-68.0); HEMOGLOBIN 10.9 g/dL (12.0-16.0); LYMPH # 0.8 (1.2-3.4); LYMPH % 6.8 % (22.0-35.0); MEAN CELL VOLUME 86.5 fl (80.0-105.0); MEAN CORPUSCULAR HEMOGLOBIN 29.9 pg (25.0-35.0); MEAN CORPUSCULAR HGB CONC 34.6 g/dl (31.0-37.0); MEAN PLATELET VOLUME 10.3 fl (7.0-11.0); MONO # 1.2 (0.1-0.6); MONO % 10.3 % (1.0-6.0); RBC 3.64 10^6/uL (3.5-6.1); RED CELL DISTRIBUTION WIDTH 13.7 % (11.5-14.5); WHITE BLOOD COUNT 11.9 10^3/ul (4.5-11.0)
[2017-11-09] MEDS: Insulin Reg-LOW-Coverage SC SCH ×4 (07:45→22:18)
[2017-11-09 07:48] LABS: ALB/GLOB RATIO 0.9 (1.1-1.8); ALBUMIN 3.4 g/dL (3.0-4.8); CALCIUM 8.8 mg/dL (8.4-10.5)
[2017-11-09] MEDS ORDERED: Alum-Mag Hydrox-Simethicone Susp (30 mL) PO PRN ×2 (08:07→08:15)
--- NOTE | 2017-11-09 08:20 | CP.PCM.PN ---
Subjective - Date & Time of Evaluation Date of Evaluation: 11/09/17 Time of Evaluation: 07:45 - Subjective Subjective: Patient is seen this morning. She is still feeling very nauseus and complains of epigastric abdominal pain. She spiked fever of 102.4 yesterday afternoon. Objective - Vital Signs/Intake and Output Vital Signs (last 24 hours): Temp Pulse Resp BP Pulse Ox 98.0 F 63 20 130/73 96 11/09/17 06:00 11/09/17 06:00 11/09/17 06:00 11/09/17 06:00 11/09/17 06:00 Intake and Output: 11/09/17 11/09/17 06:59 18:59 Intake Total 2039 Balance 2039 - Medications Medications: Current Medications Acetaminophen (Tylenol 325mg Tab) 650 mg PO Q6H PRN PRN Reason: Fever >100.4 F Last Admin: 11/08/17 21:15 Dose: 650 mg Al Hydrox/Mg Hydrox/Simethicone (Maalox Plus 30 Ml) 30 ml PO Q6H PRN PRN Reason: Indigestion / Heartburn Hydromorphone HCl (Dilaudid) 0.5 mg IVP Q4H PRN PRN Reason: Pain, severe (8-10) Metronidazole (Flagyl) 500 mg in 100 mls @ 100 mls/hr IVPB Q8 ANASTACIO PRN Reason: Protocol Last Admin: 11/09/17 05:37 Dose: 100 mls/hr Sodium Chloride (Sodium Chloride 0.9%) 100 mls @ 100 mls/hr IV .Q1H [facility] Last Admin: 11/08/17 20:34 Dose: Not Given Ceftriaxone Sodium 1 gm/ (Sodium Chloride) 100 mls @ 100 mls/hr IVPB Q12H ANASTACIO PRN Reason: Protocol Last Admin: 11/09/17 04:56 Dose: 100 mls/hr Potassium Chloride (Potassium Chloride 10 Meq/100 Ml) 10 meq in 100 mls @ 50 mls/hr IVPB Q2H ANASTACIO Stop: 11/09/17 11:59 Insulin Human Regular (Humulin R Low) 0 units SC ACHS ANASTACIO PRN Reason: Protocol Last Admin: 11/09/17 07:45 Dose: Not Given Metoprolol Succinate (Toprol Xl) 50 mg PO BRK AANSTACIO Ondansetron HCl (Zofran Inj) 4 mg IVP Q6H PRN PRN Reason: Nausea/Vomiting Last Admin: 11/09/17 04:56 Dose: 4 mg Pantoprazole Sodium (Protonix Inj) 40 mg IVP DAILY [facility] Last Admin: 11/08/17 09:41 Dose: 40 mg Potassium Chloride (K-Dur 20 Meq Er Tab) 20 meq PO TID ANASTACIO - Labs Labs: 11/09/17 06:00 11/09/17 06:00 PT 13.1 SECONDS (9.4-12.5) H 11/07/17 22:40 INR 1.20 (0.93-1.08) H 11/07/17 22:40 APTT 27.6 Seconds (25.1-36.5) 11/07/17 22:40 - Constitutional Appears: No Acute Distress - Head Exam Head Exam: ATRAUMATIC, NORMOCEPHALIC - Respiratory Exam Respiratory Exam: Clear to Ausculation Bilateral, NORMAL BREATHING PATTERN - Cardiovascular Exam Cardiovascular Exam: +S1, +S2 - GI/Abdominal Exam GI & Abdominal Exam: Soft, Tenderness, Normal Bowel Sounds Additional comments: + epigastric tenderness - Extremities Exam Extremities Exam: Normal Inspection - Neurological Exam Neurological Exam: Alert, Awake, CN II-XII Intact, Oriented x3 Assessment and Plan - Assessment and Plan (Free Text) Assessment: Sepsis Urinary Tract infection R/O acalculous cholecystitis GUANACO Hypokalemia HTN DMII HLP Plan: Patient spiked fever of 102.4 yesterday. continue antibiotics as per infectious disease. Tylenol as needed for fever. awaiting results of urine culture. HIDA scan done yesterday was negative. will replace potassium start diabetic diet Patient complaining of nausea and epigastric pain. continue Protonix. Will add Mylanta every 6 hours. continue Zofran as needed. CT abd/pelvis and Ultrasound showed gallbladder wall thickening and minimal pericholecystic fluid, but no gallstones. BUN and creatinine trending down with IV fluids. continue IV hydration.
[2017-11-09] MEDS: Metoprolol Succinate 50 mg XL Tab PO SCH (08:21)
[2017-11-09] MEDS: Sodium Chloride 0.9% 100 ML IV SCH ×15 (08:24→23:15)
[2017-11-09] MEDS: Potassium Chloride 20 mEq ER Tab PO SCH ×3 (09:29→18:33)
--- NOTE | 2017-11-09 20:41 | PN ---
DATE: 11/09/2017 SUBJECTIVE: Patient in bed in no acute distress, nontoxic. PHYSICAL EXAMINATION: VITAL SIGNS: Temperature 98, blood pressure 130/70, respiratory rate of 18. HEENT: Unremarkable. NECK: Supple. LUNGS: Decreased breath sounds. HEART: Normal S1, S2. ABDOMEN: Soft, nontender. LABORATORY EXAMINATION: [place] [address], hemoglobin 10, platelets of 237, BUN of 31, creatinine of 1.7. Urinalysis is noted. Serology, influenza is negative. Microbiology reveals the blood cultures are negative. Urine culture is gram negative rods. Review of orders reveals the patient to be on Flagyl and ceftriaxone. note is reviewed. Patient had a normal cystic duct which is patent. ASSESSMENT AND PLAN: This is a 62-year-old female with a history of hypertension, diabetes, high cholesterol, was admitted with history of fever, tachycardia, leukocytosis, bandemia, positive urinalysis, abdominal pain with severe sepsis, 35% bandemia and acute kidney injury, currently on ceftriaxone and Flagyl with gram negative altagracia in the urine as a source of the severe sepsis and negative HIDA scan and we will check on the identification of gram negative altagracia. Patient's temperature appears to have improved, so is the white count. We will follow with you. Michelet Paul MD
[2017-11-10] MEDS: Sodium Chloride 0.9% 100 ML IV SCH ×8 (00:41→18:07)
[2017-11-10] MEDS: metroNIDAZOLE IV 500 mg/100 ml 500 MG/100 ML BAG IVPB SCH ×2 (06:30→13:31)
[2017-11-10 07:16] LABS: BASO # 0.02 K/mm3 (0.0-2.0); BASO % 0.2 % (0.0-3.0); EOS # 0.1 (0.0-0.7); EOS % 0.6 % (1.5-5.0); GRAN # 9.4 (1.4-6.5); GRAN % 72.5 % (50.0-68.0); HEMOGLOBIN 10.2 g/dL (12.0-16.0); LYMPH # 1.7 (1.2-3.4); LYMPH % 12.7 % (22.0-35.0); MEAN CELL VOLUME 86.5 fl (80.0-105.0); MEAN CORPUSCULAR HEMOGLOBIN 29.2 pg (25.0-35.0); MEAN CORPUSCULAR HGB CONC 33.8 g/dl (31.0-37.0); MEAN PLATELET VOLUME 10.1 fl (7.0-11.0); MONO # 1.8 (0.1-0.6); RBC 3.49 10^6/uL (3.5-6.1); RED CELL DISTRIBUTION WIDTH 14.1 % (11.5-14.5)
[2017-11-10 07:37] LABS: ALB/GLOB RATIO 0.9 (1.1-1.8); ALBUMIN 3.3 g/dL (3.0-4.8); CALCIUM 8.7 mg/dL (8.4-10.5)
[2017-11-10] MEDS: Insulin Reg-LOW-Coverage SC SCH ×4 (08:40→22:13)
[2017-11-10] MEDS: Metoprolol Succinate 50 mg XL Tab PO SCH (08:47)
--- NOTE | 2017-11-10 09:16 | PN ---
DATE: SUBJECTIVE: The patient is in [facility] in [place] in room 372, bed 2. The patient was admitted with sepsis, urinary tract infection, abdominal pain and nausea associated with general symptoms of gastric dyspepsia. The patient has past history of diabetes mellitus, hypertension. The patient also has history of GI symptoms. The patient has been on medications for her diagnosis. At the time of admission, the patient was febrile and she was very asymptomatic. Today, the patient is starting to show improvement, she is being covered by antibiotics. The patient also has past history of hysterectomy. She denies any other surgeries. PHYSICAL EXAMINATION: VITAL SIGNS: The patient's pulse is 78, blood pressure is 127/78, respirations are 20, O2 saturation is 98% on room air and the patient has 97.9 body temperature. HEENT: Normocephalic. NECK: Thyroid is not enlarged. No lymphadenopathy in the neck. Carotid pulses are present. LUNGS: Trachea is central. Breath sounds are vesicular. Breath sounds are equally heard on both sides. HEART: Normal sinus rhythm. S1 and S2 present. No murmurs. ABDOMEN: Soft, some tenderness and distention is noted involving the epigastric area and left upper quadrant. ROOM WORKER: The patient is conscious, rational and oriented. Cranial nerves II through XII are intact . The patient's motor and sensory functions are within normal limits, cerebral functions within normal limits. DIAGNOSES: Urinary tract infection associated with sepsis. The patient also has abdominal symptoms or gastrointestinal manifestation. The patient needs Gastroenterology evaluation by toy assembler. The patient is also getting treatment by Infectious Disease, Dr. Paul, for sepsis. MEDICATIONS: List of medications consist of Rocephin 1 g q. 24 hours. The patient is on Flagyl 500 mg q. 8 hours, insulin coverage. The patient is on pantoprazole 40 mg daily. The patient has been taking metoprolol 50 mg daily, Zofran for nausea. PLAN: To do GI evaluation and follow up with antibiotic treatment. Her CAT scan was done involving the abdomen. Chest x-ray is non-diagnostic apparently. The patient's scan was negative. Overall, the patient has started to improve. We will follow up with the current management. The patient needs acute inpatient care. Yanni Ruby MD [facility] # [id number]
--- NOTE | 2017-11-10 09:25 | PN ---
DATE: SUBJECTIVE: The patient is in [facility] in [place], room 372, bed 2. The patient was admitted with sepsis, urinary tract infection. The patient was symptomatic with severe nausea, aches and pains of the body, temperature elevation. The patient has past history of diabetes mellitus, hypertension and gastritis. The patient also has past history of hysterectomy. The patient is seen this morning. She appears somewhat improved. PHYSICAL EXAMINATION: VITAL SIGNS: Pulse is 78, blood pressure 127/78, respirations are 20, temperature is 97.9, O2 sat is 98% on room air. HEENT: The patient's head is normocephalic. NECK: Thyroid is not enlarged. JVP is flat. Carotid pulses are present. No lymphadenopathy. LUNGS: Trachea is central. Breath sounds are vesicular. No adventitious sounds are heard. HEART: Normal sinus rhythm. S1 and S2 present. No murmurs. ABDOMEN: Soft, distention is noted. Tenderness is present in the epigastric area and left upper quadrant. ORTHOPAEDIC PHYSICIAN ASSISTANT: She is conscious, rational, oriented. Cranial nerves are intact. Motor, sensory functions and cerebral functions are within normal limits. She has been treated at this time for urinary tract infection and symptomatic gastric symptoms. MEDICATIONS: Consist of Mylanta. The patient is on Protonix, pantoprazole 40 mg IV daily. The patient is on metoprolol 50 mg daily. The patient is on insulin coverage for diabetes instead. The patient gets Zofran for nausea. Diet is 2 g sodium heart-healthy diet, diabetic. The patient's blood work shows that the white count seen today is 13,000, the hemoglobin is 10.2. The patient's differential shows that granulocyte count is 72.5%. The toxic granulocytes have disappeared. The patient needs gastroenterological evaluation and consultation being placed with Dr. Yañez. The patient is also seen by Dr. Paul, he is Infectious Disease decorator consultant. The patient's current management continues with antibiotic treatment. The patient is on Rocephin and Flagyl for the infection in the abdomen and urinary tract. CAT scan of the abdomen did not reveal any significant pathology. The gallbladder appears to be within normal limits. The kidney is of normal size. Chest x-ray is clear. EKG does not show any significant abnormality. The patient's overall prognosis is good at this time. Condition is improved. Yanni Ruby MD [facility] # [id number]
[2017-11-10] MEDS: Potassium Chloride 20 mEq ER Tab PO SCH ×3 (09:26→18:03)
[2017-11-10] MEDS: Sucralfate 1 gm/10 ml Oral Susp UD PO SCH (16:35)
--- NOTE | 2017-11-10 19:31 | PN ---
DATE: 11/10/2017 SUBJECTIVE: The patient is in bed, in no acute distress, and nontoxic who was seen early this morning, had low-grade fevers early this morning. PHYSICAL EXAMINATION: VITAL SIGNS: Temperature 101.3, blood pressure 120/60, and respiratory rate of 18. HEENT: Unremarkable. NECK: Supple. LUNGS: Has decreased breath sounds. HEART: Normal S1 and S2. ABDOMEN: Soft and nontender. LABORATORY DATA: Reveals the patient's white count of 13,000, hemoglobin of 10, and platelets of 274. Chemistry reveals a BUN of 23 and creatinine of 1.4. Urinalysis is noted. Influenza is negative. Microbiology reveals E. coli in the urine culture, which is sensitive to ceftriaxone, resistant to ampicillin, and sensitive to quinolone. LFTs are noted. Blood cultures are negative. MEDICATIONS: Review of medications reveal the patient to be on ceftriaxone and Flagyl. ASSESSMENT AND PLAN: A 62-year-old female with history of hypertension, diabetes, high cholesterol, history of fever, tachycardia, leukocytosis, bandemia, Escherichia coli, severe sepsis with 35% bandemia, acute kidney injury, on ceftriaxone and Flagyl, Escherichia coli in the urine as a source and with the slow response, note is reviewed from today with negative CAT scan of the abdomen and pelvis and negative HIDA scan. We will discontinue the Flagyl. We will add Cipro lower dose. The patient is scheduled for MRCP. We will follow with you. Michelet Paul MD
--- NOTE | 2017-11-11 02:04 | CON ---
DATE: 11/10/2017 This patient was seen and evaluated earlier today. HISTORY OF PRESENT ILLNESS: This is a 62-year-old patient with history of diabetes mellitus, dyslipidemia, hypertension, presented to the hospital with complaints of fever, chills, and nausea for about 5 to 6 days. The patient was also complaining of some abdominal pain. The patient has episodes of significant reflux symptoms and epigastric discomfort. GI consulted. The patient had ultrasound scan of the abdomen done which showed some thickening of the gallbladder wall with some questionable wall thickening up to 3.6 millimeter, questionable pericholecystic fluid. No gallstones noticed. Common bile duct is normal measuring about 5.6 millimeter. HIDA scan, however, done later on showed a nonvisualized gallbladder showing no obstruction. OTHER PAST MEDICAL HISTORY as above SOCIAL HISTORY no smoking no EtOH FAMILY HISTORY noncontributory REVIEW OF SYSTEM positive as above other systems reviewed negative PHYSICL EXAMINATION VITAL SIGNS stable afebile HEENT anicteric, atraumatic NECK supple no mass LUNGS bilateral air entry present ABDOMEN soft no masses no tenderness EXTREMITIES no cyanosis no clubbing NEUROLOGICALLY alert oriented most all extremities LABORATORY DATA: Hemoglobin 10.2, hematocrit 30.2, WBC 13, platelets 274, AST 72, ALT 57. BUN 23, creatinine 1.4. IMPRESSION: This is a 62-year-old patient with diabetes mellitus, hypertension, dyslipidemia, admitted with fever, chills, and nausea. The patient was found to have urinary tract infection. Urine shows Escherichia coli. RECOMMENDATION: We would recommend, 1. To continue the antibiotics as per Infectious Disease. 2. The patient also has significant reflux symptoms and epigastric symptoms, this could be partially related to the diabetes and gastroparesis. We would recommend to continue the PPI. The patient would benefit from the elective EGD and colonoscopy later as an outpatient. Empirically, we will continue the PPI low dose. Thank you very much for allowing us to participate in the care of the patient. Nii Gautam MD [facility]
[2017-11-11] MEDS: Sodium Chloride 0.9% 1,000 ML IV SCH ×2 (03:15→18:47)
[2017-11-11] MEDS: Sucralfate 1 gm/10 ml Oral Susp UD PO SCH ×2 (05:13→16:14)
[2017-11-11] MEDS: Insulin Reg-LOW-Coverage SC SCH ×4 (08:40→21:59)
[2017-11-11] MEDS: Pantoprazole 40 mg EC Tab PO SCH (08:41)
[2017-11-11] MEDS: Metoprolol Succinate 50 mg XL Tab PO SCH (08:41)
--- NOTE | 2017-11-11 09:25 | PN ---
DATE: LOCATION: The patient is in [facility] in [place], room 372, bed 2. SUBJECTIVE: The patient was admitted with fever, abdominal pain, chills, and back pain. The patient had urinary tract infection with questionable infection of the gallbladder. The patient was seen this morning. She is being treated for sepsis. PHYSICAL EXAMINATION: VITAL SIGNS: Pulse 74, blood pressure 136/82, respirations 18, O2 saturation 97% on room air, and temperature 98.6. LUNGS: Clear. HEART: Normal sinus rhythm. ABDOMEN: Soft. No tenderness noted at this time, except for mild tenderness in the epigastric area. COLLECTIONS DIRECTOR: Within normal limits. LABORATORY DATA: The urine cultures shows Gram-negative bacteria, probably Escherichia coli. The patient is awaiting an MRI done of the abdomen today. MEDICATIONS: The patient is on Rocephin and Cipro. ASSESSMENT AND PLAN: We will continue current management. The medications consists of Carafate 1 g b.i.d. The patient is on ciprofloxacin, ceftriaxone, Dilaudid for pain modalities, pantoprazole 40 mg IV for gastritis and . The patient's overall condition is improving. We will evaluate the current test reports and make plan for discharge possibly tomorrow morning. Yanni Ruby MD
[2017-11-11] MEDS: Potassium Chloride 20 mEq ER Tab PO SCH ×3 (11:41→17:18)
--- NOTE | 2017-11-11 12:38 | MRI ---
PROCEDURE: Magnetic Resonance Cholangiopancreatography HISTORY: Follow-up abnormal gallbladder ultrasound COMPARISON: None available. TECHNIQUE: Multiplanar, multisequence MR images of the abdomen were obtained, including heavily T2 weighted MRCP images of the biliary system. Rotating maximum intensity projection images of the biliary system were generated. FINDINGS: MRCP: The common bile duct is of a normal caliber. No evidence of choledocholithiasis. No intrahepatic biliary ductal dilatation. LIVER: Unremarkable. GALLBLADDER: No stones. No wall thickening or fluid SPLEEN: Unremarkable. PANCREAS: Unremarkable. ADRENALS: Unremarkable. KIDNEYS: Unremarkable. AORTA: No aneurysm. ASCITES: None. OTHER FINDINGS: None. IMPRESSION: Negative study
--- NOTE | 2017-11-11 21:59 | PN ---
DATE: 11/11/2017 SUBJECTIVE: This patient was seen and evaluated earlier. The patient is feeling much better now. Her reflux symptoms and burning sensation has significantly improved. PHYSICAL EXAMINATION VITAL SIGNS: Temperature is 98, pulse 74, blood pressure is 136/78. HEENT: Atraumatic. Anicteric. NECK: Supple. HEART: S1 and S2 heard. LUNGS: Bilateral air entry present. ABDOMEN: Soft. No tenderness now. EXTREMITIES: No edema, no cyanosis. NEUROLOGICAL: Alert and oriented. Moves all the extremities. LABORATORY DATA: No labs today. IMPRESSION: This is a 62-year-old patient with past medical history of diabetes mellitus, hypertension, dyslipidemia, admitted with urosepsis on antibiotics. The patient does have some significant reflux symptoms and epigastric discomfort, this could be probably related to the gastroparesis from diabetes. The patient has some questionable thickening of the gallbladder wall. The MRI scan done recently was reviewed, this was normal. MRCP was normal. The patient also has mild anemia. The patient would benefit from elective EGD and colonoscopy. The patient never had a colonoscopy done. The patient has chronic reflux symptoms. It is reasonable to do the EGD to rule out any Lowe's esophagus, erosive esophagitis, and I will also tailor the long-term treatment for the reflux disease. Would be very cautious in using PPI in view of this chronic kidney disease. In view of the significant symptoms, we will continue for a short period of course of PPI then we will switch it over to H2 blockers. Thank you very much for allowing me to participate in the care of the patient. Nii Gautam MD [facility]
--- NOTE | 2017-11-11 23:58 | PN ---
DATE: 11/11/2017 SUBJECTIVE: The patient seen early this morning in room 372. The patient is doing well. She states she is much better. No fevers or chills. PHYSICAL EXAMINATION VITAL SIGNS: Temperature is 98, T-max yesterday was 100.2, respiratory rate of 18 and heart rate of 73. HEENT: Unremarkable. NECK: Supple. LUNGS: Have decreased breath sounds. HEART: Normal S1, S2. ABDOMEN: Soft. LABORATORY EXAMINATION: Reveals a white count of 13,000. Initially, the patient had a 35% bandemia which was present on admission. BUN of 23 and creatinine of 1.4. Urinalysis is noted. Serology; HIV is negative. Influenza is negative. Microbiology reveals the blood cultures are no growth. Urine culture is E coli that is sensitive to ceftriaxone and sensitive to Cipro. The patient was scheduled for MRCP today which is reported to have a common bile duct is of normal caliber, no evidence of cholelithiasis, no intrahepatic biliary ductal dilatation and negative study. ASSESSMENT AND PLAN: This is a 62-year-old female with a history of hypertension, diabetes, high cholesterol, history of fever, tachycardia, leukocytosis, anemia, Escherichia coli with severe sepsis with 35% bandemia, acute kidney injury on ceftriaxone and Cipro at this time with a negative MRCP. Upon discharge, the patient may be discharged on p.o. Cipro alone would complete at least [address] Fisher's note is reviewed. Robotic Machine Operator note is reviewed. Michelet Paul MD
[2017-11-12 02:30] VITALS: O2SAT 96
[2017-11-12] MEDS: Sodium Chloride 0.9% 1,000 ML IV SCH (03:21)
[2017-11-12] MEDS: Sucralfate 1 gm/10 ml Oral Susp UD PO SCH (05:32)
[2017-11-12 06:28] VITALS: RESP 18
[2017-11-12] MEDS: Metoprolol Succinate 50 mg XL Tab PO SCH (07:53)
[2017-11-12] MEDS: Pantoprazole 40 mg EC Tab PO SCH (07:53)
[2017-11-12] MEDS: Insulin Reg-LOW-Coverage SC SCH (08:07)
--- NOTE | 2017-11-12 08:37 | CP.PCM.PN ---
Subjective - Date & Time of Evaluation Date of Evaluation: 11/12/17 Time of Evaluation: 07:45 - Subjective Subjective: Patient is seen this morning. She is feeling much better. She denies nausea or abdominal pain. Objective - Vital Signs/Intake and Output Vital Signs (last 24 hours): Temp Pulse Resp BP Pulse Ox 98.0 F 63 18 162/91 H 96 11/12/17 06:00 11/12/17 08:14 11/12/17 06:00 11/12/17 07:53 11/12/17 06:00 Intake and Output: 11/12/17 11/12/17 06:59 18:59 Intake Total 2500 Balance 2500 - Medications Medications: Current Medications Acetaminophen (Tylenol 325mg Tab) 650 mg PO Q6H PRN PRN Reason: Fever >100.4 F Last Admin: 11/10/17 19:52 Dose: 650 mg Al Hydrox/Mg Hydrox/Simethicone (Maalox Plus 30 Ml) 30 ml PO Q6H PRN PRN Reason: Indigestion / Heartburn Last Admin: 11/09/17 15:03 Dose: 30 ml Ciprofloxacin (Cipro) 250 mg PO Q12 [facility] PRN Reason: Protocol Stop: 11/19/17 14:58 Last Admin: 11/11/17 22:00 Dose: 250 mg Ceftriaxone Sodium 1 gm/ (Sodium Chloride) 100 mls @ 100 mls/hr IVPB Q12H [facility] PRN Reason: Protocol Last Admin: 11/12/17 05:32 Dose: 100 mls/hr Sodium Chloride (Sodium Chloride 0.9%) 1,000 mls @ 100 mls/hr IV .Q10H [facility] Last Admin: 11/12/17 03:21 Dose: 100 mls/hr Insulin Human Regular (Humulin R Low) 0 units SC ACHS [facility] PRN Reason: Protocol Last Admin: 11/12/17 08:07 Dose: Not Given Metoprolol Succinate (Toprol Xl) 50 mg PO BRK [facility] Last Admin: 11/12/17 07:53 Dose: 50 mg Ondansetron HCl (Zofran Inj) 4 mg IVP Q6H PRN PRN Reason: Nausea/Vomiting Last Admin: 11/10/17 00:53 Dose: 4 mg Pantoprazole Sodium (Protonix Ec Tab) 40 mg PO ACB [facility] Last Admin: 11/12/17 07:53 Dose: 40 mg Potassium Chloride (K-Dur 20 Meq Er Tab) 20 meq PO TID [facility] Last Admin: 11/11/17 17:18 Dose: 20 meq Sucralfate (Carafate Oral Susp) 1 gm PO 0600,1600 [facility] Last Admin: 11/12/17 05:32 Dose: 1 gm - Labs Labs: 11/10/17 06:45 11/10/17 06:45 PT 13.1 SECONDS (9.4-12.5) H 11/07/17 22:40 INR 1.20 (0.93-1.08) H 11/07/17 22:40 APTT 27.6 Seconds (25.1-36.5) 11/07/17 22:40 - Constitutional Appears: No Acute Distress - Head Exam Head Exam: ATRAUMATIC, NORMOCEPHALIC - Respiratory Exam Respiratory Exam: Clear to Ausculation Bilateral, NORMAL BREATHING PATTERN - Cardiovascular Exam Cardiovascular Exam: REGULAR RHYTHM, +S1, +S2 - GI/Abdominal Exam GI & Abdominal Exam: Soft, Normal Bowel Sounds. absent: Tenderness - Extremities Exam Extremities Exam: Normal Inspection - Neurological Exam Neurological Exam: Alert, Awake, CN II-XII Intact, Oriented x3 Assessment and Plan - Assessment and Plan (Free Text) Assessment: Sepsis secondary to E. coli urinary tract infection GERD HTN DMII Anemia Plan: Patient is feeling better. She has been switched to oral ciprofloxacin for urinary tract infection as per Dr. Paul, infectious disease. HIDA scan and MRCP were negative. BUN and creatinine are trending down. Patient will be discharged today. She will continue all of her home medications plus she will take Cipro 250 mg BID for 10 days, Protonix 20mg daily and Carafate 1 g BID. She will followup in the office in 1 week. She will followup with Dr. Gautam as an outpatient for EGD/colonoscopy.
[2017-11-12 08:55] LABS: BLOOD UREA NITROGEN 16 mg/dL (7-21); CALCIUM 9.1 mg/dL (8.4-10.5); GFR AFRICAN-AMERICAN > 60; GFR NON-AFRICAN AMERICAN 50
[2017-11-12] MEDS: Potassium Chloride 20 mEq ER Tab PO SCH (09:27)
[2017-11-12 13:02] VITALS: BP 162/87; PULSE 56; TEMP 98
--- NOTE | 2017-11-12 19:28 | PN ---
DATE: 11/12/2017 SUBJECTIVE: The patient seen earlier this morning in room 372, bed 2. The patient is doing well. No fevers or chills. No nausea or vomiting. PHYSICAL EXAMINATION: VITAL SIGNS: Temperature is 98, blood pressure is 112/60, respiratory rate of 18, heart rate of 69. HEENT: Unremarkable. NECK: Supple. LUNGS: Decreased breath sounds. HEART: Normal S1 and S2. ABDOMEN: Soft, nontender. LABORATORY EXAMINATION: Reveals a white count of 13,000 and BUN of 16, creatinine of 1.1 and the patient's MRCP is noted to be negative and Dr. note is reviewed. ASSESSMENT AND PLAN: A 62-year-old female with history of hypertension, diabetes, high cholesterol, history of fever, tachycardia, leukocytosis, anemia, Escherichia coli with severe sepsis with 35% bandemia, acute kidney injury on ceftriaxone and switch to p.o. Cipro and follow up with Gastroenterology and Urology. Michelet Paul MD
--- NOTE | 2017-11-12 23:10 | PN ---
DATE:11/12/2017 SUBJECTIVE: This patient was seen and evaluated earlier today. The patient was doing much better. No complaints of any abdominal pain. PHYSICAL EXAMINATION VITAL SIGNS: Afebrile. Pulse 56, blood pressure 162/87, respirations 18. HEENT: Atraumatic. Anicteric. NECK: Supple. HEART: S1 and S2 heard. LUNGS: Bilateral air entry present. ABDOMEN: Soft. No tenderness. EXTREMITIES: No cyanosis. No clubbing. LABORATORY DATA: No recent labs today. IMPRESSION: This is a 62-year-old patient with history of diabetes mellitus, dyslipidemia, hypertension, admitted with urosepsis. The patient is on antibiotics, clinically improving. Questionable thickening of the gallbladder wall was noticed in the sonogram, but the magnetic resonance cholangiopancreatography was negative. The patient has a history of recurrent severe reflux symptoms, this could be secondary to the gastroparesis, but clinically much better now. The patient is on proton pump inhibitors and also on Carafate, we will continue that. PLAN: The plan is eventually to discontinue the proton pump inhibitors and place her only on H2 blockers. She would definitely benefit from upper gastrointestinal endoscopy to further evaluate this, rule out Lowe's ulcer. The patient never had a colonoscopy. She would also benefit from the colonoscopy at the same time. I had a detailed discussion with the patient who fully understood and the contact details were given to the patient to call our office and schedule for the both upper endoscopy and a colonoscopic evaluation. Thank you very much for allowing us to participate in the care of the patient. Nii Gautam MD [facility]
--- NOTE | 2017-11-16 08:10 | DS ---
BRIEF HISTORY: This is a 62-year-old [place] female with history of diabetes, hyperlipidemia, and hypertension who presented to the emergency room with nausea, chills and abdominal pain for 5 to 6 days. The nausea was getting worse, and she began to feel pain and pressure in the lower part of her abdomen so she came to the emergency room. She denied chest pain, shortness of breath, dysuria, diarrhea, or swelling of her lower extremities. White count was 12.2, potassium 3.5, BUN 42, creatinine 2.3, which was acute as the patient had normal renal function previously. Ultrasound done in the emergency room showed gallbladder thickening and minimal pericholecystic fluid. On bloodwork, bands were also elevated at 35. HOSPITAL COURSE: The patient was admitted to the acute medical floor. She was started on IV antibiotics and seen by Infectious Disease tax credit leasing consultant, Dr. Paul. Pancultures were sent. Urine culture grew E. coli. Blood cultures were negative. She was given IV Protonix and Zofran as needed for nausea. For the acute renal insufficiency, she was started on IV normal saline [address] of the abdomen and pelvis was done which showed no gallstones, no significant pericholecystic inflammation or ductal dilation. The patient, however, was still complaining of nausea and reflux. HIDA scan was done which was negative. The patient was seen by GI tax credit leasing consultant, Dr. Gautam. MRCP was also done which was found to be normal. The patient was started on Carafate, which helped to improve her reflux symptoms. The nausea subsided. The patient's temperature also normalized from a T-max of 101.3 and the BUN and creatinine also normalized with IV fluids. She was switched to oral antibiotics and discharged home in improved condition. DISCHARGE DIAGNOSES: Sepsis, urinary tract infection, gastroesophageal reflux disease, hypertension, diabetes, hyperlipidemia, anemia and arthritis. DISCHARGE MEDICATIONS: Cipro 250 mg twice a day for 10 days, Protonix 20 mg daily, Carafate 1 g twice a day, Cozaar 50 mg daily, Aspirin 81 mg daily, metformin 500 mg twice a day, hydrochlorothiazide 25 mg daily, Zocor 10 mg daily, metoprolol 50 mg daily, and TriCor 145 mg daily. FOLLOW-UP: The patient will follow up in the office in 1 week. She will also follow up with Dr. Gautam for outpatient EGD and colonoscopy. Lb Ruby MD [facility]
== END 2017-11-12 13:22 | disposition home or self-care (01) | DRG 872 ==
LOC: ED 22:09 → ERH 11-08 02:11 → 3RSO 11-08 04:00
PROVIDERS: ADMIT Internal Medicine; ATTEND Internal Medicine
DX: A41.51 Sepsis due to Escherichia coli [E. coli] (principal); N17.9 Acute kidney failure, unspecified; E11.22 Type 2 diabetes mellitus with diabetic chronic kidney disease; K81.9 Cholecystitis, unspecified; N39.0 Urinary tract infection, site not specified; D64.9 Anemia, unspecified; I12.9 Hypertensive chronic kidney disease with stage 1 through stage 4 chronic kidney disease, or unspecified chronic kidney disease; N18.9 Chronic kidney disease, unspecified; R65.20 Severe sepsis without septic shock; E78.00 Pure hypercholesterolemia, unspecified; E78.5 Hyperlipidemia, unspecified; E87.6 Hypokalemia; K21.9 Gastro-esophageal reflux disease without esophagitis; K29.70 Gastritis, unspecified, without bleeding; M19.90 Unspecified osteoarthritis, unspecified site; Z79.82 Long term (current) use of aspirin; Z90.710 Acquired absence of both cervix and uterus; I45.10 Unspecified right bundle-branch block; B96.20 Unspecified Escherichia coli [E. coli] as the cause of diseases classified elsewhere